=== PATIENT | female | born 1935 | race Caucasian/White ===

== ENCOUNTER 2023-04-23 02:42 | Emergency (ER) | payer MEDICAID ==
[~2023-04-23] VITALS: Wt 56.7 kg
[2023-04-23] MEDS ORDERED: FREESTYLE LIBR1 EAC4 MC (03:28)
[2023-04-23] MEDS ORDERED: ATORVASTATIN CA20 M1 PO (03:29)
[2023-04-23] MEDS ORDERED: AMLODIPINE BESYL5 MG PO (03:29)
[2023-04-23] MEDS ORDERED: ASPIRIN81 M1 PO (03:29)
[2023-04-23] MEDS ORDERED: INSULIN LI100 UNIT/2 SQ (03:30)
[2023-04-23] MEDS ORDERED: ESCITALOPRAM OX10 MG PO (03:31)
[2023-04-23] MEDS ORDERED: LANTUS SOL100 UNIT/1 SC (03:31)
[2023-04-23] MEDS ORDERED: SIMBRINZA 1%-0.28 M1 OP (03:32)
[2023-04-23] MEDS ORDERED: LUMIGAN50 DRP OPH (03:32)
[2023-04-23] MEDS ORDERED: METFORMIN HYDR500 MG PO (03:32)
[2023-04-23 03:38] LABS: BASO # 0.1 10*3/uL (0.0-0.1); BASO % 0.4 % (0.0-1.0); EOS # 0.2 10*3/uL (0.0-0.4); EOS % 2.1 % (1.0-4.0); HEMATOCRIT 41.1 % (37.0-47.0); LYMPH # 1.4 10*3/uL (1.3-4.4); LYMPH % 12.4 % (27.0-41.0); MEAN CELL VOLUME 86.9 fl (81.0-99.0); MEAN CORPUSCULAR HGB 30.4 pg (27.0-31.0); MEAN PLATELET VOLUME 8.5 fl (9.6-12.3); MONO # 0.7 10*3/uL (0.1-1.0); MONO % 6.5 % (3.0-9.0); NEUT # 8.8 10*3/uL (2.3-7.9); NEUT % 78.3 % (47.0-73.0); PLATELET COUNT AUTOMATED 474 10*3/uL (130-400); RED BLOOD COUNT 4.73 10*6/uL (4.10-5.10); RED CELL DISTRI WIDTH 12.2 % (0-14.5); WHITE BLOOD COUNT 11.3 10*3/uL (4.8-10.8)
[2023-04-23 03:49] LABS: ACT PARTIAL THROMBO TIME 30.7 SECONDS (20.0-32.1)
[2023-04-23 04:00] LABS: ALKALINE PHOSPHATASE 124 U/L (46-116); BUN 7 mg/dl (9-23); CHLORIDE 95 mmol/L (98-107); LIPASE 36 U/L (12-53); POTASSIUM 2.8 mmol/L (3.4-5.1); SGPT/ALT 23 U/L (10-49); TOTAL PROTEIN 7.6 gm/dL (6.0-8.0)
== END 2023-04-23 04:30 | disposition short-term general hospital (02) ==
LOC: ED 02:42
PROVIDERS: Internal Medicine
DX: I61.9 Nontraumatic intracerebral hemorrhage, unspecified (principal); R11.2 Nausea with vomiting, unspecified